=== PATIENT | female | born 1970 | race Caucasian/White ===

== ENCOUNTER 2016-07-03 12:00 | Outpatient (CLI) ==
[2015-06-10 19:23] VITALS: BMI 27.4
[2016-07-03 13:07] LABS: BASOPHILS # (AUTO) 0.1 K/uL (0-0.2); BASOPHILS % (AUTO) 0.6 % (0.0-3.0); EOSINOPHILS # (AUTO) 0.1 K/ul (0.0-0.7); EOSINOPHILS % (AUTO) 1.1 % (0.0-7.0); HEMOGLOBIN 14.5 g/dl (12.0-16.0); IMMATURE GRANULOCYTE % (AUTO) 0.5 % (0.0-5.0); LYMPHOCYTES # (AUTO) 3.2 K/uL (0.60-3.4); LYMPHOCYTES % (AUTO) 29.9 (10.0-50.0); MEAN CORPUSCULAR HEMOGLOBIN 31.9 pg (27.0-31.0); MEAN CORPUSCULAR HGB CONC 33.7 (31.8-35.4); MEAN CORPUSCULAR VOLUME 94.5 fl (81.0-99.0); MONOCYTES # (AUTO) 0.4 K/uL (0.4-2.0); MONOCYTES % (AUTO) 3.7 (0-10); NEUTROPHILS % (AUTO) 64.2; PLATELET COUNT 305 10^3/uL (140-440); RED BLOOD COUNT 4.55 10^6/ul (4.20-5.40); WHITE BLOOD COUNT 10.83 K/ul (4.6-10.2)
[2016-07-03 13:18] LABS: H. PYLORI ANTIBODY NEGATIVE (NEGATIVE); H.PYLORI INTERNAL QC INTERNAL QC VALID
[2016-07-03 13:27] LABS: ALBUMIN/GLOBULIN RATIO 0.87; ANION GAP 15.3; BILIRUBIN,TOTAL 0.31 mg/dL (0.00-1.20); BUN/CREATININE RATIO 8.64; CALCIUM 10.2 mg/dL (8.2-10.2); CREATININE 0.81 mg/dL (0.60-1.30); POTASSIUM 4.3 mmol/L (3.5-5.10); TOTAL PROTEIN 8.6 g/dL (6.4-8.2)
== END 2016-07-03 12:01 | disposition home or self-care (01) ==
LOC: LAB 12:00
PROVIDERS: ATTEND Nurse Practitioner Family
DX: K21.9 Gastro-esophageal reflux disease without esophagitis (principal); K30 Functional dyspepsia; R19.7 Diarrhea, unspecified
CPT/HCPCS: 36415; 80053; 82150; 83690; 85025; 86677

== ENCOUNTER 2016-07-06 07:35 | Outpatient (CLI) ==
[2015-06-10 19:23] VITALS: BMI 27.4
== END 2016-07-06 07:36 | disposition home or self-care (01) ==
LOC: LAB 07:35
PROVIDERS: ATTEND Nurse Practitioner Family
DX: K21.9 Gastro-esophageal reflux disease without esophagitis (principal); K30 Functional dyspepsia; R19.7 Diarrhea, unspecified
CPT/HCPCS: 87015; 87045; 87899

== ENCOUNTER 2017-01-17 10:57 | Emergency (ER) ==
[2017-01-17 11:04] VITALS: BP 137/97; TEMP 97; BMI 27.3
[2017-01-17] MEDS ORDERED: MORPHINE 2 MG/ML SYRINGE IM STA (11:15)
[2017-01-17] MEDS ORDERED: ZOFRAN 4 MG/2 ML IM STA (11:15)
[2017-01-17] MEDS ORDERED: ROCEPHIN IM STA (11:16)
[2017-01-17] MEDS ORDERED: LIDOCAINE HCL 1% SDV SUBCUT STA (11:16)
[2017-01-17] MEDS ORDERED: BACTROBAN TP STA (11:41)
--- NOTE | 2017-01-17 11:59 | ED.PDOC ---
General ED Provider: Dr. SOL HADLEY-ER Chief Complaint: Bite Stated Complaint: i was bitten my own dog --my wrist hurts Time Seen by Physician: 11:00 Mode of Arrival: Walk-In Information Source: Patient, Family Exam Limitations: No limitations Primary Care Provider: [facility] Nursing and Triage Documentation Reviewed and Agree: Yes Skin Complaint Exam - Skin/Soft Tissue Complaint/Exam Onset/Duration: 2 hrs ago Symptoms Are: Still present Timing: Constant Initial Severity: Mild Current Severity: Mild Location: left wrist Character: Reports: Swelling, Painful. Denies: Redness Aggravating: Reports: Touch Alleviating: Reports: None Associated Signs and Symptoms: Reports: Bruising, Tenderness. Denies: Fever, Chills, Itching, Drainage, Red streaks, Joint swelling Related History: Reports: Recent trauma Related Surgical History: Reports: None Recent Exposure to Others w/Similar Symptoms: No Skin Findings: Present: Other (puncture wounds) Joint Tenderness Present: No Differential Diagnoses: Other (dog bite) Review of Systems - Review Of Systems Constitutional: Reports: No symptoms Eyes: Reports: No symptoms Ears, Nose, Mouth, Throat: Reports: No symptoms Respiratory: Reports: No symptoms Cardiac: Reports: No symptoms GI: Reports: No symptoms : Reports: No symptoms Musculoskeletal: Reports: Joint pain, Muscle pain Skin: Reports: Other (puncture wounds) Neurological: Reports: No symptoms Endocrine: Reports: No symptoms Hematologic/Lymphatic: Reports: No symptoms All Other Systems: Reviewed and Negative Past Medical History - Past Medical History Previously Healthy: Yes Endocrine: Reports: None Cardiovascular: Reports: None Respiratory: Reports: None Hematological: Reports: None Gastrointestinal: Reports: None Genitourinary: Reports: None Neuro/Psych: Reports: None Musculoskeletal: Reports: Joint Pain (right shoulder pain ), Other (TMJ ) Cancer: Reports: None Last Menstrual Period: 01/08/17 - Surgical History General Surgical History: Reports: Orthopedic (Right shoulder surgery ) - Family History Family History: Reports: None - Social History Smoking Status: Current every day smoker, Heavy tobacco smoker Hx Substance Use: No Alcohol Screening: None Lives: With family - Immunizations Tetanus Shot up to Date: Yes (3 years) Physical Exam - Physical Exam Appearance: Well-appearing, No pain distress, Well-nourished Pain Distress: Moderate Eyes: CANDE, EOMI, Conjunctiva clear ENT: Ears normal, Nose normal, Oropharynx normal Neck: Supple Respiratory: Airway patent, Breath sounds clear, Breath sounds equal, Respirations nonlabored Cardiovascular: RRR GI/: Soft, Nontender, No masses, Bowel sounds normal, No Organomegaly Musculoskeletal: Limited ROM Skin: Warm Neurological: Sensation intact Psychiatric: Affect appropriate, Mood appropriate, Anxious Interpretation - Radiology Interpretation Radiology Interpretation By: ED Physician Radiology Results: Negative Re-Evaluation - Re-Evaluation Time of Re-Evaluation: 11:59 Status: Improved Vital Signs Stable: Yes (there is no evidence of compartment syndrome ) Pain Level: 2 Appearance: NAD Lungs: Clear Skin: Other (noted puncture wounds--no evidence of cellulitis) Neuro: Alert and Oriented X3 CV: RRR Additional Comments: she has good flexion and extension of digits--cap refill is normal-- Critical Care Note - Critical Care Note Total Time (mins): 0 Course - Course Orders, Labs, Meds: Orders Category Date Time Status Ceftriaxone Sodium [Rocephin] MEDS 01/17/17 11:16 Discontinued 1 gm IM ONCE STA Lidocaine HCl/Pf [Lidocaine HCl 1% Sdv] MEDS 01/17/17 11:16 Discontinued 5 ml SUBCUT ONCE STA Morphine Sulfate [Morphine 2 mg/ml Syringe] MEDS 01/17/17 11:15 Discontinued 2 mg IM ONCE STA Mupirocin [Bactroban] MEDS 01/17/17 11:41 Discontinued 1 applic TP ONCE STA Ondansetron HCl/Pf [Zofran 4 mg/2 ml] MEDS 01/17/17 11:15 Discontinued 4 mg IM ONCE STA WRIST, LEFT 3 VIEWS Stat RADS 01/17/17 11:15 Taken Medications Discontinued Medications Generic Name Dose Route Start Last Admin Trade Name Freq PRN Reason Stop Dose Admin Ceftriaxone Sodium 1 gm 01/17/17 11:16 01/17/17 11:32 Rocephin IM 01/17/17 11:17 1 gm ONCE STA Administration Lidocaine HCl 5 ml 01/17/17 11:16 01/17/17 11:33 Lidocaine Hcl 1% Sdv SUBCUT 01/17/17 11:17 2.1 ml ONCE STA Administration Morphine Sulfate 2 mg 01/17/17 11:15 01/17/17 11:35 Morphine 2 Mg/Ml Syringe IM 01/17/17 11:16 2 mg ONCE STA Administration Mupirocin 1 applic 01/17/17 11:41 Bactroban TP 01/17/17 11:42 ONCE STA Ondansetron HCl 4 mg 01/17/17 11:15 01/17/17 11:34 Zofran 4 Mg/2 Ml IM 01/17/17 11:16 4 mg ONCE STA Administration Vital Signs: Temp Pulse Resp BP Pulse Ox 01/17/17 10:58 97.0 F L 94 H 20 137/97 H 97 Departure - Departure Time of Disposition: 12:00 Disposition: HOME SELF-CARE Discharge Problem: Dog bite Qualifiers: Encounter type: initial encounter Qualified Code(s): W54.0XXA - Bitten by dog, initial encounter Instructions: Animal Bite (ED) Condition: Good Pt referred to PMD for follow-up: Yes Additional Instructions: augmentin 875mg bid x 7 days--norco 5mg q 4hrs prn pain #10--it is important that you keep the wrist elevated and iced at all times today--you must have the wound rechecked tomorrow -- Allergies/Adverse Reactions: Allergies oxycodone HCl [From Percocet] Adverse Reaction (Verified 01/17/17 11:05) Itching Disposition Discussed With: Patient, Family
--- NOTE | 2017-01-17 13:40 | DI ---
EXAM: Left wrist, three view. HISTORY: Left wrist pain. Injury. COMPARISON: None. FINDINGS: AP, lateral oblique views of the left wrist. There are no acute or healing fractures. Th ere are no lytic or blastic lesions. There is a question soft tissue defect over the scaphoid bone. Bone mineralization is normal. No significant degenerative changes. IMPRESSION: 1. No acute fractures. 2. Possible soft tissue injury.
== END 2017-01-17 12:25 | disposition home or self-care (01) ==
LOC: ED 10:57
DX: S61.552A Open bite of left wrist, initial encounter (principal); W54.0XXA Bitten by dog, initial encounter; F17.210 Nicotine dependence, cigarettes, uncomplicated
CPT/HCPCS: 96372; 99283

== ENCOUNTER 2017-09-20 10:44 | Outpatient (CLI) ==
[2017-04-19 10:17] VITALS: BMI 28.0
--- NOTE | 2017-09-20 12:35 | DI ---
EXAM: Three views of the lumbar spine. History: Lower back pain. Findings: Atherosclerotic vascular calcifications. No acute fracture or subluxation of the lumbar s pine. Cholecystectomy clips. Long right lobe of the liver. Disc space heights are relatively prese rved. Mild facet hypertrophy within the lower lumbar spine. Impression: No acute osseous abnormality of the lumbar spine and no significant degenerative changes .
== END 2017-09-20 10:45 | disposition home or self-care (01) ==
LOC: RAD 10:44
PROVIDERS: ATTEND Emergency Medicine
DX: M54.5 Low back pain (principal)

== ENCOUNTER 2017-09-22 10:24 | Outpatient (CLI) ==
[2017-04-19 10:17] VITALS: BMI 28.0
== END 2017-09-22 10:25 | disposition home or self-care (01) ==
LOC: RHC-LAB 10:24
PROVIDERS: ATTEND Emergency Medicine
DX: R03.0 Elevated blood-pressure reading, without diagnosis of hypertension (principal); K21.9 Gastro-esophageal reflux disease without esophagitis; R73.9 Hyperglycemia, unspecified
CPT/HCPCS: 36415; 80053; 80061; 83036; 84443; 85025

== ENCOUNTER 2017-09-23 11:38 | Outpatient (CLI) ==
[2017-04-19 10:17] VITALS: BMI 28.0
--- NOTE | 2017-09-23 12:13 | DI ---
EXAM: Two views of the left hip. History: Left hip pain. Findings: No acute fracture or dislocation. The left hip joint space is preserved. Impression: No acute osseous abnormality
== END 2017-09-23 11:39 | disposition home or self-care (01) ==
LOC: RAD 11:38
PROVIDERS: ATTEND Emergency Medicine
DX: M25.552 Pain in left hip (principal)

== ENCOUNTER 2018-07-14 19:28 | Emergency (ER) ==
[2018-07-14 19:29] VITALS: BMI 28.0
[2018-07-14 19:36] VITALS: TEMP 99.3
[2018-07-14] MEDS ORDERED: DUONEB NEB STA (19:42)
[2018-07-14] MEDS ORDERED: XOPENEX 1.25 MG NEB STA (19:42)
[2018-07-14] MEDS ORDERED: SOLU-MEDROL 125 MG IVP STA (19:42)
[2018-07-14 21:30] VITALS: BP 130/89
--- NOTE | 2018-07-14 21:47 | CT ---
EXAM: CT chest without intravenous contrast 07/14/2018. Sagittal and coronal reformatted images obt ained HISTORY: Shortness of breath COMPARISON: 07/31/2018 FINDINGS: Aberrant right subclavian artery. Heart size appears within normal limits. There is no p ericardial effusion. Linear and ground-glass density within both lungs likely due to multifocal atelectasis and/or pneumon itis. There is multifocal mass-like consolidation within the right upper lobe. This has been previo usly described. PET-CT and/or biopsy was recommended on the prior study. Please correlate with biop sy results. If biopsy or PET CT has not been performed then this would again be recommended. Right apical soft tissue mass on image 12 measures 1.4 x 0.8 cm. Subpleural right upper lobe mass on image 16 has increased in size and measures 1.3 x 2.1 cm. New right upper lobe mass on image 23 ruth ann sures 4.2 x 2.6 cm. Additional multinodular mass-like consolidation within the right upper lobe. Sup rahilar soft tissue density may represent pneumonia, neoplasm or lymphadenopathy. Narrowing of multi ple right upper lobe airways. Limited views of the upper abdomen shows surgical changes of cholecystectomy. No acute osseous abnormality. IMPRESSION: 1. The prior study describes right upper lobe nodule. Biopsy and/or PET CT was recommended on the p rior study. Please correlate with biopsy results. If biopsy or PET CT has not been performed then t his would again be recommended. 2. Multiple soft tissue masses throughout the right upper lobe have worsened since the prior study. 3. Right suprahilar mass like consolidation. This may represent pneumonia, tumor or lymphadenopathy . 4. Narrowing of multiple airways to the right upper lobe. 5. Multifocal linear and ground-glass density likely due to areas of atelectasis and/or pneumonitis. 6. Status post cholecystectomy. 7. Aberrant right subclavian artery.
--- NOTE | 2018-07-14 22:01 | ED.PDOC ---
General ED Provider: Dr. SOL HADLEY-ER Chief Complaint: Shortness of Air Stated Complaint: im sob and im wheezing Time Seen by Physician: 19:30 Mode of Arrival: Walk-In Information Source: Patient Exam Limitations: No limitations Primary Care Provider: CJ CANNON Nursing and Triage Documentation Reviewed and Agree: Yes Does patient meet sepsis criteria?: No System Inflammatory Response Syndrome: Not Applicable Sepsis Protocol: For patient's 13 years and over: Temp is 96.8 and below OR 101 and greater Pulse >90 BPM Resp >20/minute Acutely Altered Mental Status Are patient's symptoms suggestive of a new infection, such as: -Pneumonia -Skin, Soft Tissue -Endocarditis -UTI -Bone, Joint Infection -Implantable Device -Acute Abdominal Infection -Wound Infection -Meningitis -Blood Stream Catheter Infection -Unknown Respiratory Complaint Exam - Respiratory Complaint/Exam Onset/Duration: 2 days Symptoms Are: Still present Timing: Constant Initial Severity: Mild Current Severity: Moderate Character: Reports: Productive cough Aggravating: Reports: URI Associated Signs and Symptoms: Reports: Rapid breathing, Dyspnea, Wheezing, URI Home Oxygen Use: No Recent Stress Test: No Recent Echo/LV Function: No Current Antibiotic Use: No Current Asthma Medication Use: Yes Respiratory Distress: Mild Inadequate Respiratory Effort: No Dysphagia Present: No Stridor Present: No JVD Present: No Accessory Muscle Use: No Retractions: Not Present Diminished Breath Sounds: No Sinus Tenderness: None Grunting Respirations: No Kussmaul Respirations: No Differential Diagnoses: Asthma Non-Traumatic Chest Pain Syncope: EKG Performed Review of Systems - Review Of Systems Constitutional: Reports: No symptoms Eyes: Reports: No symptoms Ears, Nose, Mouth, Throat: Reports: No symptoms Respiratory: Reports: Cough, Short of air, Wheezing Cardiac: Reports: No symptoms GI: Reports: No symptoms : Reports: No symptoms Musculoskeletal: Reports: No symptoms Skin: Reports: No symptoms Neurological: Reports: No symptoms Endocrine: Reports: No symptoms Hematologic/Lymphatic: Reports: No symptoms All Other Systems: Reviewed and Negative Past Medical History - Past Medical History Previously Healthy: Yes Endocrine: Reports: None Cardiovascular: Reports: None Respiratory: Reports: None Hematological: Reports: None Gastrointestinal: Reports: None Genitourinary: Reports: None Neuro/Psych: Reports: None Musculoskeletal: Reports: Joint Pain, Other, None Cancer: Reports: None Last Menstrual Period: last week - Surgical History General Surgical History: Reports: Orthopedic, , Cholecystectomy - Family History Family History: Reports: None - Social History Smoking Status: Current every day smoker, Light tobacco smoker Hx Substance Use: Yes Alcohol Screening: None - Immunizations Tetanus Shot up to Date: Yes Physical Exam - Physical Exam Appearance: Well-appearing, No pain distress, Well-nourished Eyes: CANDE, EOMI, Conjunctiva clear ENT: Ears normal, Nose normal, Oropharynx normal Neck: Supple Respiratory: Rhonchi, Wheezes Cardiovascular: RRR GI/: Soft Musculoskeletal: Normal strength, ROM intact, No edema, No calf tenderness Skin: Warm, Dry, Normal color Neurological: Sensation intact, Motor intact, Reflexes intact, Cranial nerves intact, Alert, Oriented Psychiatric: Affect appropriate, Mood appropriate Interpretation - Radiology Interpretation Radiology Interpretation By: Radiologist Radiology Results: Positive Exam Interpreted: CT Scan - EKG Interpretation Time of EKG #1: 22:01 Rate: Normal Rhythm: Sinus Ectopy: None [place]: NL ST Segment: Normal Interpretation: nsr Re-Evaluation - Re-Evaluation Time of Re-Evaluation: 22:01 Status: Improved Vital Signs Stable: Yes Pain Level: 0 Appearance: NAD Lungs: Clear Skin: Warm and Dry Neuro: Alert and Oriented X3 CV: RRR Critical Care Note - Critical Care Note Total Time (mins): 0 Course - Course Hematology/Chemistry: 07/14/18 20:06 07/14/18 20:00 Orders, Labs, Meds: Lab Review 07/14/18 07/14/18 07/14/18 19:40 19:44 20:00 WBC RBC Hgb Hct MCV MCH MCHC RDW Coeff of Aaliyah Plt Count Immature Gran % (Auto) Neut % (Auto) Lymph % (Auto) [place] % (Auto) Eos % (Auto) Baso % (Auto) Immature Gran # (Auto) Neut # (Auto) Lymph # (Auto) [place] # (Auto) Eos # (Auto) Baso # (Auto) Puncture Site Rrad O2 Saturation 95.0 ABG pH 7.448 ABG pCO2 35.3 ABG pO2 72.0 L ABG HCO3 24.5 ABG Total CO2 26 ABG Base Excess 0 Alden Test + FiO2 % 21.0 Sodium 136.6 Potassium 3.85 Chloride 100.2 Carbon Dioxide 25.9 Anion Gap 14.35 BUN 13.5 Creatinine 0.64 Estimated GFR (MDRD) 100.00 BUN/Creatinine Ratio 21.09 Glucose 119.6 H Calcium 9.42 Total Bilirubin 0.29 AST 16.4 ALT 16.1 Alkaline Phosphatase 76.7 Total Creatine Kinase Troponin I NT-Pro-B Natriuret Pep 60.100 Total Protein 7.42 Albumin 4.48 Globulin 2.94 Albumin/Globulin Ratio 1.52 Serum , Qual Influ A Molecular Assay Negative by naat Influ B Molecular Assay Negative by naat 07/14/18 07/14/18 07/14/18 20:00 20:00 20:06 WBC 15.99 H RBC 3.98 L Hgb 11.6 L Hct 35.4 L MCV 88.9 MCH 29.1 MCHC 32.8 RDW Coeff of Aaliyah 15.3 H Plt Count 480 H Immature Gran % (Auto) 0.6 Neut % (Auto) 85.1 Lymph % (Auto) 9.4 L [place] % (Auto) 4.1 Eos % (Auto) 0.4 Baso % (Auto) 0.4 Immature Gran # (Auto) 0.1 Neut # (Auto) 13.6 H Lymph # (Auto) 1.5 [place] # (Auto) 0.7 Eos # (Auto) 0.1 Baso # (Auto) 0.1 Puncture Site O2 Saturation ABG pH ABG pCO2 ABG pO2 ABG HCO3 ABG Total CO2 ABG Base Excess Alden Test FiO2 % Sodium Potassium Chloride Carbon Dioxide Anion Gap BUN Creatinine Estimated GFR (MDRD) BUN/Creatinine Ratio Glucose Calcium Total Bilirubin AST ALT Alkaline Phosphatase Total Creatine Kinase 29.2 L Troponin I < 0.012 NT-Pro-B Natriuret Pep Total Protein Albumin Globulin Albumin/Globulin Ratio Serum , Qual Negative Influ A Molecular Assay Influ B Molecular Assay Orders Category Date Time Status ABG DRAW REQUEST Stat CARDIO 07/14/18 19:41 Completed EKG-(ED ONLY) Stat CARDIO 07/14/18 19:40 Completed NEBULIZER TREATMENT Stat CARDIO 07/14/18 19:42 Completed ED FIELD CROP GROWER APPLIED .ONCE EMERGENCY 07/14/18 19:40 Active ED IV/MEDIPORT/POWERPORT .ONCE EMERGENCY 07/14/18 19:41 Active ABG Stat LAB 07/14/18 19:40 Completed BLOOD CULTURE (ED ONLY) Stat LAB 07/14/18 20:00 Received CBC W/ AUTO DIFF Stat LAB 07/14/18 20:06 Completed COMPREHENSIVE METABOLIC PANEL Stat LAB 07/14/18 20:00 Completed CREATINE KINASE Stat LAB 07/14/18 20:00 Completed FLU A/B MOLECULAR Stat LAB 07/14/18 19:44 Completed NT-PROBNP Stat LAB 07/14/18 20:00 Completed SERUM Stat LAB 07/14/18 20:00 Completed TROPONIN I Stat LAB 07/14/18 20:00 Completed 0.9 % Sodium Chloride [Saline Flush] MEDS 07/14/18 19:40 Ordered 1 syr IVF PRN PRN Ipratropium/Albuterol Neb [Duoneb] MEDS 07/14/18 19:42 Discontinued 1 vial NEB ONCE STA Levalbuterol HCl [Xopenex 1.25 mg] MEDS 07/14/18 19:42 Discontinued 1 vial NEB ONCE STA Methylprednisolone Sod Succ/Pf [Solu-Medrol 125 mg] MEDS 07/14/18 19:42 Discontinued 125 [address]P ONCE STA CT CHEST W/O CONTRAST Stat RADS 07/14/18 19:42 Completed Medications Generic Name Dose Route Start Last Admin Trade Name Freq PRN Reason Stop Dose Admin Sodium Chloride 1 syr 07/14/18 19:40 07/14/18 20:00 Saline Flush IVF 1 syr PRN PRN Administration To flush IV Discontinued Medications Generic Name Dose Route Start Last Admin Trade Name Freq PRN Reason Stop Dose Admin Albuterol/Ipratropium 1 vial 07/14/18 19:42 07/14/18 20:05 Duoneb NEB 07/14/18 19:43 1 vial ONCE STA Administration Levalbuterol HCl 1 vial 07/14/18 19:42 07/14/18 19:50 Xopenex 1.25 Mg NEB 07/14/18 19:43 1 vial ONCE STA Administration Methylprednisolone Sodium Succinate 125 mg 07/14/18 19:42 07/14/18 19:53 Solu-Medrol 125 Mg IVP 07/14/18 19:43 125 mg ONCE STA Administration Vital Signs: Temp Pulse Resp BP Pulse Ox 07/14/18 21:29 107 H 20 130/89 95 07/14/18 20:41 114 H 07/14/18 19:29 99.3 F 125 H 24 101/72 92 L Departure - Departure Time of Disposition: 22:01 Disposition: TSF SHORT-TRM HOSP Discharge Problem: Abnormal CT scan, chest Acute respiratory failure Qualifiers: Respiratory failure complication: hypoxia Qualified Code(s): J96.01 - Acute respiratory failure with hypoxia Instructions: Acute Respiratory Failure (ED) Condition: Good Pt referred to PMD for follow-up: Yes IPMP verified?: No Allergies/Adverse Reactions: Allergies oxycodone HCl [From Percocet] Adverse Reaction (Verified 01/17/17 11:05) Itching Home Medications: Ambulatory Orders 1 [No Reported Medications] 07/14/18 Transfer Form Completed: Yes Disposition Discussed With: Patient, Family
== END 2018-07-14 22:50 | disposition short-term general hospital (02) ==
LOC: ED 19:28
DX: J96.01 Acute respiratory failure with hypoxia (principal); R91.8 Other nonspecific abnormal finding of lung field; F17.210 Nicotine dependence, cigarettes, uncomplicated
CPT/HCPCS: 36415; 80053; 82550; 82803; 83880; 84484; 84703; 85025; 87040; 87502; 93005; 93010; 94640; 96374; 99285

== ENCOUNTER 2018-07-14 22:51 | Outpatient (CLI) ==
[2018-07-14 19:29] VITALS: BMI 28.0
== END 2018-07-14 23:15 | disposition short-term general hospital (02) ==
LOC: AMBL 22:51
PROVIDERS: ATTEND Family Medicine
DX: R06.2 Wheezing (principal); R09.89 Other specified symptoms and signs involving the circulatory and respiratory systems; R05 Cough